=== PATIENT | male | born 1955 | race Caucasian/White ===

== ENCOUNTER 2022-03-03 09:15 | Inpatient (IN) | payer OTHER ==
[2022-03-10] MEDS ORDERED: DICLOFENAC POTA50 MG (10:06)
[2022-03-10] MEDS ORDERED: ATORVASTATIN CA20 MG (10:07)
[2022-03-10] MEDS ORDERED: PRED FORTE5 ML (10:07)
[2022-03-10] MEDS ORDERED: PANTOPRAZOLE SO40 MG (10:07)
[2022-03-10] MEDS ORDERED: LISINOPRIL5 MG (10:07)
[2022-03-10] MEDS ORDERED: CYANOCOBAL1000 MCG/1 (10:07)
[2022-03-12] MEDS ORDERED: NEURONTIN300 MG PO (18:19)
[2022-03-12] MEDS ORDERED: ACETAMINOPHEN500 M2 PO (18:19)
== END 2022-03-12 21:27 | disposition home or self-care (01) | DRG 330 ==
LOC: O/R 03-09 06:09 → SURG 03-09 06:09 → SURH 03-11 14:33 → SURG 03-11 18:39
PROVIDERS: ADMIT Surgery; ATTEND Surgery
PROC: 0DBL4ZZ Excision of Transverse Colon, Percutaneous Endoscopic Approach (ICD-10-PCS; 2022-03-09)
PROC: 07TC4ZZ Resection of Pelvis Lymphatic, Percutaneous Endoscopic Approach (ICD-10-PCS; 2022-03-09)
PROC: 0DTG4ZZ Resection of Left Large Intestine, Percutaneous Endoscopic Approach (ICD-10-PCS; principal; 2022-03-09 07:00)
DX: C18.4 Malignant neoplasm of transverse colon (principal); K92.1 Melena; R59.0 Localized enlarged lymph nodes; K59.09 Other constipation; I11.9 Hypertensive heart disease without heart failure; E78.5 Hyperlipidemia, unspecified; D64.9 Anemia, unspecified